=== PATIENT | male | born 1965 | race Caucasian/White ===

== ENCOUNTER 2016-10-04 14:50 | Inpatient (IN) | payer OTHER ==
--- NOTE | ~2016-10-04 | CN ---
Consultation Report [facility] [address] [place]. [address] NAME: KELECHI HARDEN : 63 STATUS : ADM IN PAT#: [id number] AGE: 51 ADM/REG DATE : 10/04/16 MR#: [id number] REPORT SERV DATE: 10/05/16 DICTATED BY: DATE: REPORT STATUS : Draft TRANSCRIBED BY: MODL DATE: 10/05/16 CARDIOLOGY CONSULTATION DATE OF CONSULTATION: 10/05/2016 CHIEF COMPLAINT/REASON FOR CONSULTATION: Volume overload and atrial fibrillation with rapid ventricular response. HISTORY OF PRESENT ILLNESS: Mr. Kelechi Harden is a 51-year-old gentleman, who does not have an established primary care provider and has not seen a physician in quite some time. He states that for the past four to six weeks, he has increasingly been short of breath. Yesterday, he was to see and establish care with a primary care provider, but when it got to the point where he was unable to walk from his porch to the car, he decided to present to the hospital for evaluation. He has not had any chest pain. He notes marked shortness of breath, lower extremity edema and he notes that he has bilateral cellulitis. The patient has a known diagnosis of obstructive sleep apnea, but never sought treatment for it. PAST MEDICAL HISTORY: 1. Morbid obesity, greater than 500 pounds. 2. Untreated obstructive sleep apnea. 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 He does not smoke, drink, or use extracurricular drugs. He is . FAMILY HISTORY: Unknown as the patient was adopted. ALLERGIES: NO KNOWN DRUG ALLERGIES. MEDICATIONS: Current inpatient medications include: 1. Aspirin 81 mg p.o. daily. 2. Cardizem drip per protocol. 3. Eliquis 5 mg p.o. b.i.d. 4. Bumex 1 mg IV q.8 hours. 5. Zosyn. REVIEW OF SYSTEMS: All systems are reviewed and is negative, except for as dictated in the HPI. PHYSICAL EXAMINATION: VITAL SIGNS: Temperature 98.1, pulse is 87 beats per minute, blood pressure is 107/71. Weight is 619 pounds or 247 kg. GENERAL: Mr. Harden appears pale. He is a chronically ill-appearing 51-year-old gentleman, who appears much older than his stated age. NECK: I could not appreciate jugular venous distention due to body habitus. Consultation Report [place] [address] [place]. [address] NAME: KELECHI HARDEN : 63 STATUS : ADM IN PAT#: [id number] AGE: 51 ADM/REG DATE : 10/04/16 MR#: [id number] REPORT SERV DATE: 10/05/16 DICTATED BY: DATE: REPORT STATUS : Draft TRANSCRIBED BY: MODL DATE: 10/05/16 HEART: Irregular, rate controlled. Soft S1 and S2. I could not appreciate murmurs, rubs, or gallops. LUNGS: There are inspiratory and expiratory wheezes in all lung burkett present. ABDOMEN: Obese. The abdominal aorta is nonpalpable. I could not appreciate any renal bruits. EXTREMITIES: There is marked erythema and weeping wounds of the lower extremities bilaterally and marked edema. NEUROLOGIC: I could not appreciate focal neurologic deficits. DATA: A chest x-ray did not demonstrate josh pulmonary edema, but demonstrated cardiomegaly. An EKG documented atrial fibrillation with rapid ventricular response at 103 beats per minute. There are nonspecific ST-T segment changes, it is a very poor quality EKG. Telemetry currently demonstrates rate-controlled atrial fibrillation. Data demonstrate a hemoglobin of 11.6, a hematocrit of 38, a platelet count of 206, a white blood cell count of 4. Sodium 137, potassium 3.5, BUN 12, creatinine 1.02. BNP is 558. Troponins range between 0.24 and 0.31. TSH 0.5. IMPRESSION REPORT AND PLAN: 1. Atrial fibrillation with rapid ventricular response, now rate controlled, likely chronic. 2. Marked volume overload, query right heart failure due to untreated obstructive sleep apnea versus left heart failure versus other. 3. Anemia and leukopenia, unclear etiology. 4. Obstructive sleep apnea, untreated. RECOMMENDATIONS: 1. I agree with echocardiogram as previously ordered. 2. I would continue diuresis. 3. Would make sure that the patient has a bariatric bed that will allow him to be weighed on a daily basis. 4. Strict I's and O's. 5. Fluid restrict to less than 2 L per day. 6. Sodium restrict to less than 2 g p.o. daily. 7. I agree with Eliquis as previously ordered. 8. Would check overnight oximetry to re-evaluate for obstructive sleep apnea. 9. Unfortunately, the patient is not a candidate for any invasive procedures as he exceeds the weight limit on both our nuclear cameras and cardiac catheterization table as well as PET camera. 10.Additional recommendations pending clinical course. KRISTEN/MODL Heidy Shen Consultation Report [address] [address] NAME: KELECHI HARDEN : 63 STATUS : ADM IN PAT#: [id number] AGE: 51 ADM/REG DATE : 10/04/16 MR#: [id number] REPORT SERV DATE: 10/05/16 DICTATED BY: DATE: REPORT STATUS : Draft TRANSCRIBED BY: MODL DATE: 10/05/16 Hanna Mayo / [id number] CC: Oral Flowers M.D.
--- NOTE | ~2016-10-04 | DS ---
Discharge Summary [facility] [address] [place]. [address] NAME: DE HARDEN : 63 STATUS : DIS IN PAT#: [id number] AGE: 51 ADM/REG DATE : 10/04/16 MR#: [id number] REPORT SERV DATE: 10/12/16 DICTATED BY: WALDEMAR MERAZ DATE: 10/11/16 REPORT STATUS : Draft TRANSCRIBED BY: CARLOS DATE: 10/11/16 ADMISSION DATE: 10/04/2016 DISCHARGE DATE: 10/11/2016 PROCEDURES DONE: 1. On 10/04/2016 chest x-ray: Cardiomegaly and pulmonary vascular prominence, accentuated with shallow inspiration and large patient's size. Otherwise, no acute cardiopulmonary abnormality. 2. On 10/04/2016 ultrasound lower extremity: No evidence of DVT. Right Escobedo cyst noted. 3. On 10/05/2016 2D echo: Moderately dilated left ventricle with mild left ventricular systolic dysfunction. More focal inferior wall hypokinesis, EF of 45%. Normal left ventricular systolic dysfunction. Normal right ventricular size and systolic function. Mild left atrial enlargement. Mildly dilated aortic root at 4.2 cm. Calcified and probably bicuspid aortic valve with restricted leaflet mobility. Measured peak velocity of greater than 5 m/sec is consistent with severe aortic stenosis. However, visually there appears to be only mild to moderate aortic stenosis. Consider further evaluation with cardiac cath if clinically indicated. 4. On 10/07/2016 chest x-ray: Stable cardiomegaly. Probable chronic interstitial lung disease pattern. Probable subsegmental atelectasis left lung base. Otherwise, no definite superimposed acute pneumonia. 5. On 10/10/2016 chest x-ray: Mild vascular congestion is improving compared to 10/07/2016. Cardiomegaly is unchanged. CONSULTS: 1. Cardiology. 2. Lara Gill M.D. for Pulmonary. REASON FOR ADMISSION: Shortness of breath with dyspnea with exertion. Please refer to interim discharge summary made by Dr. Flowers on 10/09/2016. HISTORY OF HOSPITAL STAY: A 51-year-old white male with past medical history of congestive heart failure and atrial fibrillation presenting with worsening shortness of breath with dyspnea on exertion. Apparently, the patient is having progressive shortness of breath. Both Pulmonary and Cardiology was also consulted for the patient during his hospital stay. The patient was kept overnight due to a sudden change in mental status, but was subsequently improved when the patient had a change of his medication from aggressive diuresis. Demadex was held and gave one dose of Diamox which improved the patient's mental status. At this time, the patient will be sent to [facility] for rehab. Prior to discharge the patient has been advised regarding his clinical condition. DISPOSITION: The patient is feeling fine, no complaints. ACTIVITY: As tolerated. DIET: Low fat. Discharge Summary [address] [address] NAME: DE HARDEN : 63 STATUS : DIS IN PAT#: [id number] AGE: 51 ADM/REG DATE : 10/04/16 MR#: [id number] REPORT SERV DATE: 10/12/16 DICTATED BY: WALDEMAR MERAZ DATE: 10/11/16 REPORT STATUS : Draft TRANSCRIBED BY: CARLOS DATE: 10/11/16 INSTRUCTIONS UPON DISCHARGE: 1. The patient will be sent to [facility] for rehab. 2. The patient advised to setup for his PCP. 3. The patient recommended once PCP is established follow up for a sleep study. MEDICATIONS UPON DISCHARGE: 1. Apixaban 5 mg p.o. b.i.d. 2. Coreg 6.25 mg daily. 3. Guaifenesin 600 mg p.o. b.i.d. 4. Losartan 25 mg p.o. q.h.s. 5. Aldactone 25 mg p.o. daily. 6. Atrovent nebulizers four times a day. DIAGNOSES UPON DISCHARGE: 1. Dyspnea on exertion secondary to acute on chronic hypercapnic respiratory failure, obstructive hypoventilated syndrome versus obstructive sleep apnea. 2. Acute on chronic hypercapnic respiratory failure. 3. Obstructive sleep apnea/obstructive hypoventilation syndrome secondary to noncompliance of continuous positive airway pressure. 4. Atrial fibrillation status post rapid ventricular response. 5. Chronic venous stasis. 6. Morbid obesity, BMI 74.1. MALA/CARLOS Waldemar Meraz MD / [id number] CC: Waldemar Meraz MD
--- NOTE | ~2016-10-04 | IDS ---
Interim Discharge Summary [facility] [address] [place]. [address] NAME: DE HARDEN : 63 STATUS : ADM IN [facility]#: [id number] AGE: 51 ADM/REG DATE : 10/04/16 MR#: [id number] REPORT SERV DATE: 10/09/16 DICTATED BY: STEVEN FLOWERS DATE: 10/09/16 REPORT STATUS : Draft TRANSCRIBED BY: MODL DATE: 10/09/16 ADMISSION DATE: 10/04/2016 DISCHARGE DATE: CONSULTANTS: Heidy Mayo M.D. and Eloy White M.D., Cardiology. PROBLEM LIST: 1. Acute hypoxic respiratory failure. 2. Severe obstructive sleep apnea, not treated. 3. Paroxysmal atrial fibrillation with rapid ventricular response. 4. Morbid obesity with body mass index of 74.1. 5. Chronic stasis dermatitis, right worse than the left calf. 6. Aortic stenosis with possible bicuspid valve. 7. Iron-deficiency anemia. 8. Anasarca. HISTORY: This gentleman has severe obesity, it is actually morbid, his BMI is 74.1. He has known obstructive sleep apnea. He states that "they never sent me my machine," this was actually years ago and he never followed up. He has no PCP. He presented to our emergency room at [facility] with complaints of shortness of breath, especially dyspnea on exertion, but even dyspnea at rest. It got to the point where he had difficulty walking across the room. Chest x-ray in the emergency room revealed cardiomegaly with pulmonary vascular congestion. Venous Doppler of his legs revealed no DVT, but a right- sided Escobedo's cyst was noted. B-natriuretic was elevated at 1205.8. Cardiac troponins were minimally elevated between 0.16 and 0.31. Cardiology felt it was probably a demand myocardial injury, but because his weight was greater than 550 pounds, he was not a candidate for any kind of cardiac imaging modality beyond chest x-ray and echocardiography at this time. Echocardiogram done on 10/05/2016 reveals left atrial enlargement of 4.7 cm. Moderately dilated left ventricle with mild left ventricular systolic dysfunction, ejection fraction of 45%. Mildly dilated aortic root of 4.2 cm. The aortic valve appeared calcified and probably bicuspid with reads restricted leaflet mobility suggesting mild to moderate aortic stenosis. To further define this, he would need a catheterization which he is not able to get because of his weight at this time. He is aware of it. Cardiology recommends continued use of oxygen and future sleep study as well as at this time diuresis to mobilize volume overload along with Coreg and Cozaar. Because of his atrial fibrillation with rapid ventricular response, he has been on the beta dany, Coreg, which has controlled his ventricular response rate. The patient is on Eliquis for stroke prophylaxis therapy He has stasis dermatitis wounds. Does not appear to have active cellulitis. His white count has been normal through his time here. The culture of the legs revealed diphtheroid organisms and some sparse gram-negative bacilli to be identified. Blood cultures no growth. Sputum culture with normal rozina. Interim Discharge Summary [address] [address] NAME: DE HARDEN : 63 STATUS : ADM IN [facility]#: [id number] AGE: 51 ADM/REG DATE : 10/04/16 MR#: [id number] REPORT SERV DATE: 10/09/16 DICTATED BY: STEVEN FLOWERS DATE: 10/09/16 REPORT STATUS : Draft TRANSCRIBED BY: MODL DATE: 10/09/16 The patient is felt to need inpatient rehab for physical therapy and wound care. When he is healthy enough he needs outpatient sleep study to define his sleep apnea and get him onto CPAP or BiPAP and to follow up longitudinally with Cardiology, so that when his weight will allow, he could have further evaluation of his aortic valve. The patient has been noted to have a mild anemia. He does appear to be iron deficient with a low percent iron sat of 7 and a low serum iron of 22. Stool for guaiac has not been obtained yet. RSG/KEILYL Steven Flowers M.D. / [id number] CC: Steven Flowers M.D.
--- NOTE | ~2016-10-04 | HP ---
History And Physical [facility] [address] [place]. [address] NAME: DE HARDEN : 63 STATUS : ADM IN [facility]#: [id number] AGE: 51 ADM/REG DATE : 10/04/16 MR#: [id number] REPORT SERV DATE: 10/05/16 DICTATED BY: MOISES OSEI DATE: 10/05/16 REPORT STATUS : Draft TRANSCRIBED BY: MODL DATE: 10/05/16 DATE OF ADMISSION: 10/04/2016 CHIEF COMPLAINT: Shortness of breath with dyspnea with exertion. HISTORY OF PRESENT ILLNESS: This is a 51-year-old male, who is morbidly obese, who has been feeling poorly for about three weeks now according to him. He states he has been having progressively worsening dyspnea with exertion, which finally culminated in shortness of breath even at rest. He does not have any established primary care physician, nor has he seen any other specialists. Today, he was unable to even get up for across the room and finally decided to call EMS to bring him to the hospital here. In the emergency room, he had an initial workup that revealed he had an atrial fibrillation with rapid ventricular response, volume overload, and elevated troponin and possibly cellulitis of his lower extremity. Hospitalist Service is asked to admit him for further evaluation and treatment. At the time of my evaluation, he denied any chest pain or palpitations. He had no orthopnea. He had no cough, hemoptysis, night sweats, or weight loss. He denied any recent falls or loss of consciousness. No history of fevers and chills. He denied any nausea, vomiting, diarrhea. No other history of recent travel or exposures. PAST MEDICAL HISTORY: His past medical history is significant for: 1. History of congestive heart failure. 2. History of atrial fibrillation. SOCIAL HISTORY: He does not smoke, drink, or use recreational drugs. 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 FAMILY HISTORY: Noncontributory. MEDICATIONS: His medications at home were reviewed by me in the chart today and reordered by me. REVIEW OF SYSTEMS: As in history of present illness. All other systems were reviewed in detail and quite unremarkable. PHYSICAL EXAMINATION: GENERAL: This is a pleasant 51-year-old, not in any acute distress. HEENT: His head is atraumatic and normocephalic. He is alert, awake, oriented to time, place, and person. He is morbidly obese. NECK: Supple with no jugular venous distention, lymphadenopathy, or thyromegaly. LUNGS: Clear to auscultation, although there was decreased air entry bilaterally. There were no expiratory wheezes. HEART: Auscultation of his heart revealed irregular rate and rhythm. History And Physical [address] [address] NAME: DE HARDEN : 63 STATUS : ADM IN [facility]#: [id number] AGE: 51 ADM/REG DATE : 10/04/16 MR#: [id number] REPORT SERV DATE: 10/05/16 DICTATED BY: MOISES OSEI DATE: 10/05/16 REPORT STATUS : Draft TRANSCRIBED BY: CARLOS DATE: 10/05/16 ABDOMEN: Soft and nontender. Bowel sounds are present. EXTREMITIES: Bilateral pitting lower extremity edema with bilateral increased redness and warmth. NEURO: Grossly intact. No focal sensory or motor deficits. Higher functions appeared intact. VITAL SIGNS: Today showed a temperature of 98.7, pulse 103, respirations 26 a minute, and blood pressure was 162/104 upon arrival. Oxygen saturations were 93% breathing 4 L via nasal cannula. LABORATORY DATA: Reviewed on the [employer] system showed an arterial blood gas with a pH of 7.38, pCO2 was 38, PaO2 was 78, and bicarb was 21.8. This was on 3 L via nasal cannula. CMP showed normal values with a glucose of 94. Troponin today was 0.24. His BNP was elevated at 1205.8 and his lactate was 1.4. CBC showed a white blood cell count of 6400, hemoglobin was 12.3, hematocrit 38.8, and platelet count was 235,000. Urinalysis was grossly unremarkable. Films of the chest x-ray were reviewed by me on the PACS today, and per my interpretation there is increased vascular prominence and cardiomegaly. There are small bilateral pleural effusions seen as well. Venous Doppler of his lower extremities were performed in the emergency room, which showed no active DVTs, but there was a right Escobedo's cyst. A 12-lead EKG done in emergency room was reviewed and interpreted by me. There is atrial fibrillation with rapid ventricular response of 103. IMPRESSION: 1. Atrial fibrillation with rapid ventricular response. 2. Volume overload. 3. Congestive heart failure with exacerbation. 4. Elevated troponin. 5. Bilateral lower extremity cellulitis. 6. Right Escobedo's cyst seen on ultrasound today. PLAN: We will admit Mr. Harden to the Hospitalist Service with telemetry for a 24-hour observation period. He will be started on Cardizem infusion for this rapid ventricular rate. We will also use beta-blockers if necessary for rate control. We will go ahead and consult [facility] in the morning to evaluate him. He was started on Eliquis which we will continue. We will also start him on intravenous diuretics for 24 hours, follow outputs rate, and check his TSH as well. We will also get an echocardiogram in the morning. Meanwhile, we will place him on bronchodilator treatments, continue supplemental oxygen therapy, and also follow troponin levels. Meanwhile, we will get cultures and start him on History And Physical [address] [address] NAME: DE HARDEN : 63 STATUS : ADM IN [facility]#: [id number] AGE: 51 ADM/REG DATE : 10/04/16 MR#: [id number] REPORT SERV DATE: 10/05/16 DICTATED BY: MOISES OSEI DATE: 10/05/16 REPORT STATUS : Draft TRANSCRIBED BY: CARLOS DATE: 10/05/16 empiric IV antibiotics at this time and it is noted that his lower extremities were negative for deep venous thrombosis. I have discussed the above plans with the patient. His questions were answered and he is agreeable to the above recommendations. Hospitalist Service will be following him during his stay here. /CARLOS Moises Osei M.D. / [id number] CC: Jose Luis Kasper M.D.
--- NOTE | ~2016-10-04 | PUL ---
[facility] [place] [address] [place]. [address] NAME: DE HARDEN : 63 STATUS : ADM IN [facility]#: [id number] AGE: 51 ADM/REG DATE : 10/04/16 MR#: [id number] REPORT SERV DATE: 10/08/16 DICTATED BY: LARA RAMOS DATE: 10/07/16 REPORT STATUS : Draft TRANSCRIBED BY: MODL DATE: 10/07/16 PULMONARY FUNCTION TEST OVERNIGHT OXIMETRY Start date of testin10/05/2016. Ended date of testin10/06/2016. COMMENTS: Testing was conducted while the patient was breathing room air. RESULTS: Total valid sampling time 6 hours 24 minutes and 34 seconds. Total time with an oxygen saturation less than 88%, 53 minutes and 42 seconds. Oxygen desaturation index 33.1. IMPRESSION: There was significant desaturation during this study conducted while the patient was breathing room air. Additionally, the oxygen desaturation index was elevated suggestive of possible obstructive sleep apnea. Recommend supplemental oxygen at a flow rate of 2 L per minute while sleeping. Recommend formal sleep study if clinically indicated. PS/CARLOS Lara Ramos M.D. / [id number] CC: Oral Flowers M.D.
[2016-10-04 14:32] LABS: ALLENS TEST Pos; BE (BASE EXCESS) -2.8 MEQ/L (0 +/- 2.5); CARBOXYHEMOGLOBIN 1.9 % (0-3); DEVICE NC; HCO3 (ACTUAL BICARBONATE) 21.8 MEQ/L (23-27); HEMOBLOGIN CONTENT 13.3 G/DL (14-18); INSTRUMENT SERIAL # 8087; METHEMOGLOBIN 0.1 % (0-3); O2 CONTENT 17.6 VOL% (18-24); PCO2 (CO2 TENSION) 38 MMHG (35-45); PO2 (O2 TENSION) 78 MMHG (79-93); SAMPLE Arterial; pH 7.38 (7.37-7.43)
[2016-10-04 16:30] LABS: BASOPHILS 0.2 %; BASOPHILS ABSOLUTE 0.01 10/3/uL (0.0-0.16); EOSINOPHILS 0 %; ER CBC TAT 0 Hrs 10 Mins; HEMATOCRIT 38.8 % (40.0-51.0); HEMOGLOBIN 12.3 g/dL (13.6-17.8); IMMATURE GRANULOCYTES 0.2 %; IMMATURE GRANULOCYTES ABSOLUTE 0.01 10/3/uL (0.0-0.11); MANUAL DIFF NO %; MEAN CORPUS HGB CONC 31.7 g/dL (32.0-36.0); MEAN CORPUSCULAR HEMOGLOB 25.7 pg (26.0-34.0); MEAN CORPUSCULAR VOLUME 81.2 fL (80-100); MEAN PLATELET VOLUME 10.5 fL (9.2-13.0); MONOCYTES 8.2 %; MONOCYTES ABSOLUTE 0.52 10/3/uL (0.21-1.20); NEUTROPHILS 80.4 %; NEUTROPHILS ABSOLUTE 5.14 10/3/uL (2.02-8.40); PLATELET COUNT 235 10/3/uL (150-400); RBC DISTRIBUTION WIDTH 15.9 % (12.0-16.0); RED CELL COUNT 4.78 10/6/uL (4.7-6.1); WHITE BLOOD CELLS 6.4 10/3/uL (4.5-10.5)
[2016-10-04 16:42] LABS: A/G RATIO 0.7 (0.7-1.9); ALBUMIN 3.1 G/DL (3.5-5.0); ALKALINE PHOSPHATASE 76 U/L (45-117); BUN (BLOOD UREA NITROGEN) 11 MG/DL (6-23); CALCIUM, SERUM 8.4 MG/DL (8.5-10.4); CHLORIDE, SERUM 100 MMOL/L (96-112); CO2 (CARBON DIOXIDE) 29 MMOL/L (24-34); CREATININE 1.23 MG/DL (0.70-1.30); GFR AFRICAN AMERICAN 78 ML/MIN (>=60); GFR NON AFRICAN AMERICAN 67 ML/MIN (>=60); GLOBULIN 4.7 G/DL (2.5-4.1); GLUCOSE, SERUM 94 MG/DL (60-99); SGOT(AST) 44 U/L (5-40); SGPT(ALT) 24 U/L (5-65); SODIUM, SERUM 137 MMOL/L (135-148); TOTAL PROTEIN 7.8 G/DL (6.0-8.5)
[2016-10-04 17:23] LABS: TROPONIN I 0.24 NG/ML (<0.05)
[2016-10-05 09:38] LABS: BASOPHILS 0.3 %; BASOPHILS ABSOLUTE 0.01 10/3/uL (0.0-0.16); EOSINOPHILS 0 %; HEMOGLOBIN 11.6 g/dL (13.6-17.8); IMMATURE GRANULOCYTES 0.3 %; IMMATURE GRANULOCYTES ABSOLUTE 0.01 10/3/uL (0.0-0.11); LYMPHOCYTES 8.8 %; LYMPHOCYTES ABSOLUTE 0.35 10/3/uL (0.67-4.30); MEAN CORPUS HGB CONC 30.5 g/dL (32.0-36.0); MEAN CORPUSCULAR HEMOGLOB 25.1 pg (26.0-34.0); MEAN CORPUSCULAR VOLUME 82.1 fL (80-100); MEAN PLATELET VOLUME 10.3 fL (9.2-13.0); MONOCYTES 13.5 %; MONOCYTES ABSOLUTE 0.54 10/3/uL (0.21-1.20); NEUTROPHILS 77.1 %; NEUTROPHILS ABSOLUTE 3.09 10/3/uL (2.02-8.40); PLATELET COUNT 206 10/3/uL (150-400); RBC DISTRIBUTION WIDTH 16.2 % (12.0-16.0); RED CELL COUNT 4.63 10/6/uL (4.7-6.1)
[2016-10-05 09:40] LABS: MANUAL DIFF NO %
[2016-10-05 10:02] LABS: BUN (BLOOD UREA NITROGEN) 12 MG/DL (6-23); CALCIUM, SERUM 7.9 MG/DL (8.5-10.4); CHLORIDE, SERUM 99 MMOL/L (96-112); CO2 (CARBON DIOXIDE) 31 MMOL/L (24-34); CREATININE 1.02 MG/DL (0.70-1.30); GFR AFRICAN AMERICAN 97 ML/MIN (>=60); GFR NON AFRICAN AMERICAN 84 ML/MIN (>=60); GLUCOSE, SERUM 98 MG/DL (60-99); PHOSPHORUS, SERUM 2.6 MG/DL (2.5-4.5); POTASSIUM, SERUM 3.5 MMOL/L (3.5-5.3); SODIUM, SERUM 137 MMOL/L (135-148); TROPONIN I 0.24 NG/ML (<0.05); ULTRASENSITIVE TSH 0.516 MCIU/ML (0.358-3.740)
[2016-10-05 16:54] LABS: IRON BINDING CAPACITY 352 MCG/DL (250-450)
[2016-10-06 06:48] LABS: CALCIUM, SERUM 7.8 MG/DL (8.5-10.4); CHLORIDE, SERUM 99 MMOL/L (96-112); CO2 (CARBON DIOXIDE) 30 MMOL/L (24-34); CREATININE 1.06 MG/DL (0.70-1.30); GFR AFRICAN AMERICAN 93 ML/MIN (>=60); GFR NON AFRICAN AMERICAN 80 ML/MIN (>=60); GLUCOSE, SERUM 89 MG/DL (60-99); POTASSIUM, SERUM 3.8 MMOL/L (3.5-5.3); SODIUM, SERUM 137 MMOL/L (135-148)
[2016-10-06 06:49] LABS: BUN (BLOOD UREA NITROGEN) 16 MG/DL (6-23)
[2016-10-06 16:07] LABS: % IRON SAT 7 % (20-50); FERRITIN 138 NG/ML (26-388); IRON BINDING CAPACITY 298 MCG/DL (250-450); IRON, SERUM 22 MCG/DL (35-150)
[2016-10-06 16:43] LABS: PROCALCITONIN 0.17 ng/mL (<0.5)
[2016-10-07 07:42] LABS: BASOPHILS 0.4 %; BASOPHILS ABSOLUTE 0.02 10/3/uL (0.0-0.16); EOSINOPHILS 0.2 %; EOSINOPHILS ABSOLUTE 0.01 10/3/uL (0.0-0.53); HEMATOCRIT 40.8 % (40.0-51.0); HEMOGLOBIN 12.4 g/dL (13.6-17.8); LYMPHOCYTES 20.4 %; LYMPHOCYTES ABSOLUTE 0.92 10/3/uL (0.67-4.30); MEAN CORPUS HGB CONC 30.4 g/dL (32.0-36.0); MEAN CORPUSCULAR HEMOGLOB 25.1 pg (26.0-34.0); MEAN CORPUSCULAR VOLUME 82.6 fL (80-100); MEAN PLATELET VOLUME 10.2 fL (9.2-13.0); MONOCYTES 12.4 %; MONOCYTES ABSOLUTE 0.56 10/3/uL (0.21-1.20); NEUTROPHILS 66.6 %; NEUTROPHILS ABSOLUTE 2.99 10/3/uL (2.02-8.40); PLATELET COUNT 208 10/3/uL (150-400); RBC DISTRIBUTION WIDTH 16.2 % (12.0-16.0); RED CELL COUNT 4.94 10/6/uL (4.7-6.1); WHITE BLOOD CELLS 4.5 10/3/uL (4.5-10.5)
[2016-10-07 07:45] LABS: MANUAL DIFF NO %
[2016-10-07 07:57] LABS: BUN (BLOOD UREA NITROGEN) 15 MG/DL (6-23); CALCIUM, SERUM 7.9 MG/DL (8.5-10.4); CHLORIDE, SERUM 100 MMOL/L (96-112); CO2 (CARBON DIOXIDE) 30 MMOL/L (24-34); CREATININE 0.93 MG/DL (0.70-1.30); GFR AFRICAN AMERICAN 109 ML/MIN (>=60); GFR NON AFRICAN AMERICAN 94 ML/MIN (>=60); GLUCOSE, SERUM 87 MG/DL (60-99); POTASSIUM, SERUM 3.7 MMOL/L (3.5-5.3); SODIUM, SERUM 137 MMOL/L (135-148)
[2016-10-08 07:07] LABS: BUN (BLOOD UREA NITROGEN) 16 MG/DL (6-23); CALCIUM, SERUM 7.8 MG/DL (8.5-10.4); CHLORIDE, SERUM 100 MMOL/L (96-112); CO2 (CARBON DIOXIDE) 29 MMOL/L (24-34); CREATININE 0.89 MG/DL (0.70-1.30); GFR AFRICAN AMERICAN 114 ML/MIN (>=60); GFR NON AFRICAN AMERICAN 98 ML/MIN (>=60); GLUCOSE, SERUM 86 MG/DL (60-99); POTASSIUM, SERUM 3.8 MMOL/L (3.5-5.3); SODIUM, SERUM 139 MMOL/L (135-148)
[2016-10-09 05:57] LABS: BUN (BLOOD UREA NITROGEN) 13 MG/DL (6-23); CALCIUM, SERUM 7.9 MG/DL (8.5-10.4); CHLORIDE, SERUM 100 MMOL/L (96-112); CO2 (CARBON DIOXIDE) 30 MMOL/L (24-34); CREATININE 0.79 MG/DL (0.70-1.30); GFR AFRICAN AMERICAN 120 ML/MIN (>=60); GFR NON AFRICAN AMERICAN 103 ML/MIN (>=60); SODIUM, SERUM 138 MMOL/L (135-148)
[2016-10-09 06:09] LABS: GLUCOSE, SERUM 115 MG/DL (60-99); POTASSIUM, SERUM 4.1 MMOL/L (3.5-5.3)
[2016-10-10 06:41] LABS: BASOPHILS 0.2 %; BASOPHILS ABSOLUTE 0.01 10/3/uL (0.0-0.16); EOSINOPHILS 1.8 %; EOSINOPHILS ABSOLUTE 0.08 10/3/uL (0.0-0.53); HEMATOCRIT 42.1 % (40.0-51.0); HEMOGLOBIN 12.9 g/dL (13.6-17.8); IMMATURE GRANULOCYTES 0.2 %; IMMATURE GRANULOCYTES ABSOLUTE 0.01 10/3/uL (0.0-0.11); LYMPHOCYTES 24.9 %; LYMPHOCYTES ABSOLUTE 1.12 10/3/uL (0.67-4.30); MANUAL DIFF NO %; MEAN CORPUS HGB CONC 30.6 g/dL (32.0-36.0); MEAN CORPUSCULAR HEMOGLOB 25.7 pg (26.0-34.0); MEAN CORPUSCULAR VOLUME 83.9 fL (80-100); MEAN PLATELET VOLUME 11.2 fL (9.2-13.0); MONOCYTES 12.7 %; MONOCYTES ABSOLUTE 0.57 10/3/uL (0.21-1.20); NEUTROPHILS 60.2 %; PLATELET COUNT 223 10/3/uL (150-400); RED CELL COUNT 5.02 10/6/uL (4.7-6.1); WHITE BLOOD CELLS 4.5 10/3/uL (4.5-10.5)
[2016-10-10 07:00] LABS: BUN (BLOOD UREA NITROGEN) 12 MG/DL (6-23); CALCIUM, SERUM 8.6 MG/DL (8.5-10.4); CHLORIDE, SERUM 98 MMOL/L (96-112); CO2 (CARBON DIOXIDE) 33 MMOL/L (24-34); CREATININE 0.79 MG/DL (0.70-1.30); GFR AFRICAN AMERICAN 120 ML/MIN (>=60); GFR NON AFRICAN AMERICAN 103 ML/MIN (>=60); SODIUM, SERUM 139 MMOL/L (135-148)
[2016-10-10 07:06] LABS: GLUCOSE, SERUM 90 MG/DL (60-99)
[2016-10-10 15:13] LABS: ALLENS TEST Pos; BE (BASE EXCESS) 9.4 MEQ/L (0 +/- 2.5); CARBOXYHEMOGLOBIN 1.7 % (0-3); DEVICE NC; HCO3 (ACTUAL BICARBONATE) 36.8 MEQ/L (23-27); HEMOBLOGIN CONTENT 14.1 G/DL (14-18); INSTRUMENT SERIAL # 8083; METHEMOGLOBIN 0.2 % (0-3); O2 CONTENT 18.6 VOL% (18-24); PCO2 (CO2 TENSION) 62 MMHG (35-45); PO2 (O2 TENSION) 80 MMHG (79-93); SAMPLE Arterial; pH 7.39 (7.37-7.43)
[2016-10-10 16:01] LABS: PROCALCITONIN <0.05 ng/mL (<0.5)
[2016-10-11 06:24] LABS: BASOPHILS 0.2 %; BASOPHILS ABSOLUTE 0.01 10/3/uL (0.0-0.16); EOSINOPHILS 1.7 %; EOSINOPHILS ABSOLUTE 0.09 10/3/uL (0.0-0.53); HEMATOCRIT 43.3 % (40.0-51.0); HEMOGLOBIN 13.3 g/dL (13.6-17.8); IMMATURE GRANULOCYTES 0.4 %; IMMATURE GRANULOCYTES ABSOLUTE 0.02 10/3/uL (0.0-0.11); LYMPHOCYTES 25.2 %; LYMPHOCYTES ABSOLUTE 1.33 10/3/uL (0.67-4.30); MANUAL DIFF NO %; MEAN CORPUS HGB CONC 30.7 g/dL (32.0-36.0); MEAN CORPUSCULAR HEMOGLOB 25.8 pg (26.0-34.0); MEAN CORPUSCULAR VOLUME 83.9 fL (80-100); MEAN PLATELET VOLUME 11.7 fL (9.2-13.0); MONOCYTES 8.9 %; MONOCYTES ABSOLUTE 0.47 10/3/uL (0.21-1.20); NEUTROPHILS 63.6 %; NEUTROPHILS ABSOLUTE 3.36 10/3/uL (2.02-8.40); PLATELET COUNT 294 10/3/uL (150-400); RBC DISTRIBUTION WIDTH 15.9 % (12.0-16.0); RED CELL COUNT 5.16 10/6/uL (4.7-6.1); WHITE BLOOD CELLS 5.3 10/3/uL (4.5-10.5)
[2016-10-11 10:17] LABS: BUN (BLOOD UREA NITROGEN) 12 MG/DL (6-23); CALCIUM, SERUM 8.6 MG/DL (8.5-10.4); CHLORIDE, SERUM 101 MMOL/L (96-112); CO2 (CARBON DIOXIDE) 30 MMOL/L (24-34); CREATININE 0.96 MG/DL (0.70-1.30); GFR AFRICAN AMERICAN 105 ML/MIN (>=60); GFR NON AFRICAN AMERICAN 91 ML/MIN (>=60); GLUCOSE, SERUM 106 MG/DL (60-99); SODIUM, SERUM 137 MMOL/L (135-148)
[2016-10-11 10:28] LABS: POTASSIUM, SERUM 4.6 MMOL/L (3.5-5.3)
== END 2016-10-11 19:56 | DRG 291 ==
LOC: ER 14:50 → 7NO 19:12
PROVIDERS: Emergency Medicine; Hospitalist; Internal Medicine; Internal Medicine Pulmonary Disease
DX: I50.23 Acute on chronic systolic (congestive) heart failure (principal); J96.01 Acute respiratory failure with hypoxia; L03.115 Cellulitis of right lower limb; Z68.45 Body mass index [BMI] 70 or greater, adult; L03.116 Cellulitis of left lower limb; E66.2 Morbid (severe) obesity with alveolar hypoventilation; M71.21 Synovial cyst of popliteal space [Baker], right knee; I35.0 Nonrheumatic aortic (valve) stenosis; I87.2 Venous insufficiency (chronic) (peripheral); D50.9 Iron deficiency anemia, unspecified
CPT/HCPCS: 36600; 71010; 80048; 80053; 82607; 82728; 82805; 83540; 83550; 83605; 83735; 83880; 84100; 84145; 84443; 84484; 85025; 87040; 87070; 87077; 87186; 87205; 87449; 93005; 93970; 94640; 94762; 96374; 97161-GP; 97530-GP; 99285; A9270-GY; C8929; J1120; J1940; J1956; J2543; J2916; Q9957

== ENCOUNTER 2017-04-18 12:29 | Inpatient (IN) | payer OTHER ==
[~2017-04-18] VITALS: Ht 182.9 cm; Wt 201.2 kg
--- NOTE | ~2017-04-18 | IDS ---
Interim Discharge Summary [facility] [address] [place]. [address] NAME: DE HARDEN : 63 STATUS : ADM IN [facility]#: [id number] AGE: 52 ADM/REG DATE : 04/18/17 MR#: [id number] REPORT SERV DATE: 04/23/17 DICTATED BY: STEVEN FLOWERS DATE: 04/23/17 REPORT STATUS : Draft TRANSCRIBED BY: MODL DATE: 04/23/17 ADMISSION DATE: 04/18/2017 DISCHARGE DATE: CONSULTANTS: Erick Hodges IV, MD, Cardiology. PROBLEM LIST: 1. Acute on chronic diastolic and systolic congestive heart failure with left ventricular ejection fraction of 45%. 2. Severe aortic stenosis with aortic valve area of 0.6 cm2 on transthoracic echo. 3. Paroxysmal atrial fibrillation. 4. Right bundle branch block pattern. 5. Morbid obesity with BMI of 73.8. 6. Chronic leg venous stasis dermatitis. 7. Right knee Escobedo's cyst. 8. Mild metabolic alkalosis. 9. Suspected severe obstructive sleep apnea. HISTORY: This patient was here in September of 2016 and found to have hypoxic respiratory failure, felt to have severe obstructive sleep apnea, it was not treated. He also had atrial fibrillation at that time with rapid ventricular response and aortic stenosis with suspected bicuspid aortic valve. The patient was seen by Pulmonary and by Cardiology during that hospitalization, had successful diuresis, and was set up to be on followup with his PCP for a sleep study. Unfortunately, the patient did not follow up with his PCP, did not get a sleep study, and did not take any of his medications. He presents back now with progressive leg swelling, and shortness of breath, and was referred to our team for inpatient care. His chest x-ray on presentation shows mild pulmonary vascular congestion. Venous Doppler of the legs reveals no evidence of deep vein thrombosis on either leg, but a Escobedo's cyst, right popliteal fossa. Echocardiogram transthoracic on 04/19/2017, reveals left atrial enlargement 4.5 cm, mildly dilated left ventricle with left ventricular ejection fraction of 45%, and more focal inferior wall hypokinesis. Normal right ventricular size and function. Severe aortic stenosis with peak velocity 4.2 m/sec. Aortic valve area 0.6 cm2. The patient is currently in atrial fibrillation. He is got his rate controlled. He is on a heparin drip. We will discuss long-term anticoagulation with warfarin. With his BMI greater than 70, I would not be comfortable using a novel oral anticoagulant given the limited clinical data available and the recommendations of the International Society Of Thrombosis And Hemostasis to avoid NOAC's in patients with a BMI greater than 40 kilos. Currently, we are not putting him on the warfarin because we are waiting for cardiology decide on doing a heart catheterization to examine the size of the valve, and to check his right heart pressure, as well as his coronary arteries. He is currently receiving intravenous Lasix and trying to get a steady diuresis of 2.5 to 3 Interim Discharge Summary [place] [id number] [facility] [place]. [address] NAME: DE HARDEN : 63 STATUS : ADM IN [facility]#: [id number] AGE: 52 ADM/REG DATE : 04/18/17 MR#: [id number] REPORT SERV DATE: 04/23/17 DICTATED BY: STEVEN FLOWERS DATE: 04/23/17 REPORT STATUS : Draft TRANSCRIBED BY: CARLOS DATE: 04/23/17 L a day without causing contraction alkalosis which could lead to respiratory depression and confusion The patient is cooperative. He is still ambulatory. We need to continue to get him up on a daily basis. His blood pressure is controlled, his breathing is doing well. He is on beta dany and losartan. He is not on aspirin right now, but he is on heparin. EDA/CARLOS Steven Flowers M.D. / [id number] CC: Steven Flowers M.D.
--- NOTE | ~2017-04-18 | CN ---
Consultation Report [facility] [address] [place]. [address] NAME: DE HARDEN : 63 STATUS : ADM IN PAT#: [id number] AGE: 52 ADM/REG DATE : 04/18/17 MR#: [id number] REPORT SERV DATE: 04/26/17 DICTATED BY: MIO HOUSE DATE: 04/26/17 REPORT STATUS : Draft TRANSCRIBED BY: MODL DATE: 04/26/17 CONSULTATION NOTE DATE OF CONSULTATION: REASON FOR CONSULTATION: Severe aortic valve stenosis, consideration for surgical aortic valve replacement versus transcatheter aortic valve insertion. CHIEF COMPLAINT: "I got very short of breath." HISTORY OF PRESENT ILLNESS: This is a pleasant 52-year-old obese gentleman, who recently presented to the emergency department with complaints of severe shortness of breath, swelling, and exercise intolerance. He was hospitalized for further evaluation and treatment of his acute heart failure. His prior history is significant for morbid obesity, probable obstructive sleep apnea, and admission here in September and October of this year for heart failure. At that time, he underwent an echocardiogram which showed mildly diminished left ventricular function with ejection fraction of 45% and inferior hypokinesis, mildly dilated aortic root of 4.2 cm, calcified probable bicuspid aortic valve with restricted leaflet mobility, and mild to moderate aortic stenosis. At that time, he was found to be in atrial fibrillation. He denies having had any prior history before that of atrial fibrillation or heart problems. He does admit that he has about an 18-month history of exercise intolerance, dyspnea on exertion. At his prior admission, he was discharged to rehabilitative care and was treated for a lower extremity venous stasis/cellulitis as well as his heart failure and obesity. He was placed on medications and told me he was doing very well at losing weight and was feeling much better. He reports that he became noncompliant with his diet, started eating pretty much what he wanted and also neglected to take his medications. He then again became very short of breath, with lower extremity edema, and re-presented to the emergency department here on the 04/18/2017, at which time, he was hospitalized with heart failure, atrial fibrillation, and aortic stenosis. He had a repeat echocardiogram which demonstrated severe aortic stenosis with aortic valve area of 0.6 cm2 and coronary arteriogram today did not show any significant flow-limiting coronary artery disease, did show severe aortic stenosis with mean gradient of 70 mmHg and aortic valve area calculated at 0.7 mmHg. He also had pulmonary hypertension of 55 mmHg. He had elevated right atrial pressure. We were asked to see for possible surgical aortic valve replacement versus transcatheter aortic valve insertion and this was discussed with the patient at length today. PRIOR MEDICAL HISTORY: 1. Systolic/diastolic heart failure. 2. Aortic stenosis. 3. Atrial fibrillation. 4. Chronic lower extremity stasis dermatitis. Consultation Report [address] [place]. [address] NAME: DE HARDEN : 63 STATUS : ADM IN [facility]#: [id number] AGE: 52 ADM/REG DATE : 04/18/17 MR#: [id number] REPORT SERV DATE: 04/26/17 DICTATED BY: MIO HOUSE DATE: 04/26/17 REPORT STATUS : Draft TRANSCRIBED BY: CARLOS DATE: 04/26/17 5. Right bundle branch block. 6. Morbid obesity. 7. Medical noncompliance. PRIOR SURGICAL HISTORY: Umbilical hernia. ALLERGIES: NONE KNOWN. MEDICATIONS AT HOME: None. SOCIAL HISTORY: He uses smokeless tobacco, does not smoke. Denies use of alcohol or illicit drugs. He lives alone. 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 FAMILY HISTORY: Not known as he is adopted and does not have any known siblings. REVIEW OF SYSTEMS: Notable only for wearing glasses, umbilical hernia, and as above. He denies any history of stroke or TIA symptoms. He denies any history of abnormal or easy bleeding or bruising. He denies any bone or joint problems. Denies any kidney or liver problems. PHYSICAL EXAMINATION: GENERAL: This is a pleasant obese balding white male, lying in bed, in no acute distress. VITAL SIGNS: His height is 182.88 cm. Weight is 220.58 kg giving him BMI of 73.92. HEENT: Normocephalic, atraumatic. Pupils are equal, round, and reactive to light and accommodation. Sclerae are clear, conjunctivae pink. Oral and buccal mucosa are pink and moist. He is missing several teeth, has some fillings, but I do not see any abscesses or broken teeth. NECK: Supple. No restricted range of motion. No carotid bruits. No jugular venous distention. CHEST: Clear to auscultation anteriorly. No use of accessory muscles. No chest wall tenderness. No obvious deformity. CV: Irregular rhythm, with palpable and symmetric central and peripheral pulses, with lower extremity woody edema, discoloration, and palpable central and peripheral pulses. HEART: Has an irregular rhythm with a harsh aortic systolic murmur heard across the precordium. ABDOMEN: Soft, morbidly obese, nontender with abdominal striae. /RECTAL: Declined. MUSCULOSKELETAL: No obvious kyphoscoliosis or asymmetry. NEUROLOGIC: He is pleasant and affable, alert, oriented, with normal speech flow and affect. No focal neurologic deficits. No tremors. SKIN, HAIR, AND NAILS: Discoloration and coarsening of the skin over the lower extremities with a peeled orange appearance. DATA: He has coronary arteriogram today which I reviewed showing no significant flow- limiting coronary artery disease and findings as above. Ejection fraction by echo was 45%. Consultation Report [address] [address] NAME: DE HARDEN : 63 STATUS : ADM IN [facility]#: [id number] AGE: 52 ADM/REG DATE : 04/18/17 MR#: [id number] REPORT SERV DATE: 04/26/17 DICTATED BY: MIO HOUSE DATE: 04/26/17 REPORT STATUS : Draft TRANSCRIBED BY: CARLOS DATE: 04/26/17 Echo currently shows findings as mentioned above. EKG shows atrial fibrillation with occasional PVCs, pattern consistent with right bundle branch block and left ventricular hypertrophy. CURRENT LABS: Hemoglobin A1c is 5.4. Lipid profile is notable for low HDL of 30, his total cholesterol, LDL, and triglycerides are not elevated. Electrolyte profile shows sodium 138, potassium 3.9, chloride 101, CO2 of 29, BUN 8, creatinine is 1. His CBC shows WBC 7.1, hemoglobin 13.6 g, hematocrit 42.7%, platelets 202,000. IMPRESSION: 1. Severe aortic stenosis. 2. Acute on chronic, systolic and diastolic heart failure. 3. Atrial fibrillation. 4. Chronic lower extremity venous stasis and dermatitis. 5. Pulmonary hypertension. 6. Obstructive sleep apnea. PLAN: I talked with the patient today at length about possible surgical aortic valve replacement using bioprosthetic versus mechanical valve, as well as possible maze procedure. We also talked about possible transcatheter aortic valve insertion. We talked about the indications, benefits, risks, and usual perioperative course of each particular therapy. Significant risks to open valve replacement include things such as bleeding, infection, pneumonia, blood transfusions, damage to the kidneys including kidney failure and dialysis, damage to the liver or the lungs, heart attack, stroke, abnormal heart rhythm or need for pacemaker, mediastinitis, and even . The transcatheter aortic valve insertion would necessitate further weight loss on his part as the table lymph weight limit is 430 pounds. I used the Society of Thor[employer] Surgeons database to predict risks mortality at 0.992%, any morbidity or mortality of 11.27%. Using [employer], his mortality risk was calculated at 1.8%. This was discussed with the patient today. We will talk with the surgeon and make further disposition. We appreciate very much the opportunity to participate in this gentleman's care. Sincerely, DIMAS/CARLOS [facility] NKishor / [id number] CC: Oral Cervantes M.D. Consultation Report [address] [address] NAME: DE HARDEN : 63 STATUS : ADM IN [facility]#: [id number] AGE: 52 ADM/REG DATE : 04/18/17 MR#: [id number] REPORT SERV DATE: 04/26/17 DICTATED BY: MIO HOUSE DATE: 04/26/17 REPORT STATUS : Draft TRANSCRIBED BY: MODCleveland DATE: 04/26/17 Wilfred Fuentes DO
--- NOTE | ~2017-04-18 | PRECARD ---
H&P [facility] [address] [facility] [place]. [address] NAME: KELECHI HARDEN : 63 STATUS : ADM IN [facility]#: [id number] AGE: 52 ADM/REG DATE : 04/18/17 MR#: [id number] REPORT SERV DATE: 04/27/17 DICTATED BY: YOLANDA DE LA TORRE DATE: 04/27/17 REPORT STATUS : Draft TRANSCRIBED BY: CARLOS DATE: 04/27/17 DATE OF ADMISSION: 04/18/2017 HISTORY OF PRESENT ILLNESS: Mr. Kelechi Harden is a 52-year-old morbidly obese, gentleman with severe aortic stenosis. Mr. Harden describes an approximate five-month history of dyspnea on exertion, easy fatigue. These symptoms have progressed to dyspnea walking on level ground at perhaps 30 feet. He has had no orthopnea or PND. Denies palpitations. He has no chest discomfort at all. He has no presyncope or syncope. His echocardiogram on 04/19/2017, demonstrated ejection fraction 45%, with severe aortic stenosis, peak velocity 4.2 m/sec, aortic valve area of 0.6, VTI ratio 0.2. Cardiac catheterization performed yesterday demonstrates [id number] atherosclerotic plaquing with no significant obstructive disease. The aortic valve area was 0.7, mean gradient 70 mmHg. He had an LVEDP and wedge pressure of 35, right atrial pressure of 25. He has a history of atrial fibrillation. Again, no history of diabetes, hypertension, or heart failure. PAST MEDICAL HISTORY: 1. Morbid obesity. 2. Sleep apnea. MEDICATIONS: Current medications are Lipitor, Cozaar, Coreg, and warfarin. SOCIAL HISTORY: He is single, denies alcohol and tobacco, works in a mailroom. PHYSICAL EXAMINATION: VITAL SIGNS: Blood pressure is about 115/70, heart rate about 70. GENERAL: He is comfortable, flat, no acute distress. HEENT: No xanthelasma; lips without cyanosis LUNGS: Clear to auscultation, no wheezes, rales or rhonchi; good breath sounds. COR: No JVD or hepatojugular reflux, no rubs or gallops, impulse mid clavicular line without carotid or abdominal bruits; normal S1 and S2. 3/6 murmur heard at the right upper sternal border with late peaking, with preserved S2. ABDOMEN: Bowel sounds positive, normal activity, without tenderness, masses or hepatosplenomegaly. EXTREMITIES: Have severe bilateral leg edema. No cyanosis. SKIN: Normal turgor. MUSCULOSKELETAL: Normal muscle strength, without kyphosis/scoliosis. NEURO/PSYCH: Alert and oriented times 4, no apparent anxiety or depression. LABORATORY DATA: BUN is 17, creatinine 0.9. INR is 1.1. Troponin was 0.05. BNP is 539. ASSESSMENT AND PLAN: Mr. Harden is a 52-year-old gentleman with severe aortic stenosis, peak H&P [address] [address] NAME: KELECHI HARDEN : 63 STATUS : ADM IN [facility]#: [id number] AGE: 52 ADM/REG DATE : 04/18/17 MR#: [id number] REPORT SERV DATE: 04/27/17 DICTATED BY: YOLANDA DE LA TORRE DATE: 04/27/17 REPORT STATUS : Draft TRANSCRIBED BY: CARLOS DATE: 04/27/17 gradient 70, valve area of 0.7 by catheterization. He weighed 470 pounds today, 491 pounds on 04/20/2017. He has a markedly elevated right atrial pressure and wedge pressure. So, hopefully with aggressive diuresis, his dyspnea will improve. Also, his weight today was 470 pounds. The weight limit on our table for the hybrid room is 440 pounds. I think he would be at excessive risk for surgical aortic valve replacement, and transcatheter aortic valve placement would be a better option. I will have to discuss with our team, the safest approach. I am not sure that we could do percutaneous access through the femoral approach given his obesity. I think a femoral approach would be preferred if access could be obtained, preferably with percutaneous approach rather than open access. We will also consider the subclavian approach. NOEL/CARLOS Yolanda De La Torre M.D. / [id number] CC: Hanna Wilson,
--- NOTE | ~2017-04-18 | HP ---
History And Physical [facility] [id number] [place]. [address] NAME: DE HARDEN : 63 STATUS : ADM Neeraj PAT#: [id number] AGE: 52 ADM/REG DATE : 04/18/17 MR#: [id number] REPORT SERV DATE: 04/18/17 DICTATED BY: YENI LARA DATE: 04/18/17 REPORT STATUS : Draft TRANSCRIBED BY: MODCleveland DATE: 04/18/17 DATE OF ADMISSION: 04/18/2017 The patient is a 52-year-old male, who presented to [facility] with a complaint of shortness of breath. He denies any chest pain. No abdominal pain. No fever. No rash. No headache. He reported that since he was discharged on 10/12/2016, he was not taking his diuretics. He was not taking any of his medications. He says that he sees Dr. Wilfred Fuentes, and he did not follow up with him last time as well as he said that it is "difficult for me to take home medications. I guess I have to have a habit to take them, but I do not take them". He said also he was drinking more fluids than usual. He was eating without any discretion, salt food and other things. He is complaining of his legs being swollen and being shortness of breath. No chest pain. Afebrile. PAST MEDICAL HISTORY: Known for morbid obesity. He also has congestive heart failure. His echocardiogram which was done last time on October 05, 2016, showed moderately dilated left ventricle with left ventricular systolic dysfunction, focal inferior wall hypokinesis with ejection fraction of 45%, mildly dilated aortic root at 4.2 cm, calcified probably bicuspid aortic valve with restricted leaflet mobility and it also showed mild to moderate aortic stenosis. His other medical problems including morbid obesity; obstructive sleep apnea, he was supposed to see Dr. Penny for a sleep mask but he did not see him. He also has history of atrial fibrillation. He has history of umbilical hernia. SOCIAL HISTORY: No smoking. No alcohol. No recreational drug use. FAMILY HISTORY: He does not know his biological parents. He is adopted. MEDICATIONS: Currently he does not take any medications. ALLERGIES: THERE ARE NO KNOWN DRUG ALLERGIES. HE ALSO HAS HISTORY OF ANASARCA AND HISTORY OF IRON-DEFICIENCY ANEMIA. PHYSICAL EXAMINATION: GENERAL: Morbidly obese male, not in acute distress, resting quietly. VITAL SIGNS: Blood pressure 133/82, temperature 97.2, heart rate 91, respiratory rate 20, and oxygen saturation 99 on room air. HEENT: Head atraumatic, normocephalic. Conjunctivae clear. Pupils are equal and reactive to light and accommodation. Extraocular muscles are intact. NECK: Supple. Trachea is midline. No supraclavicular or cervical lymphadenopathy. LUNGS: Diminished breath sounds bilaterally. Decreased respiratory effort secondary to morbid obesity. CARDIOVASCULAR SYSTEM: Irregularly irregular rate and rhythm. Point of maximal impulse not displaced. ABDOMEN: Extremely obese. Soft. No tenderness to palpation. Positive normoactive bowel sounds. EXTREMITIES: 2+ pedal edema. Morbidly obese with chronic venous stasis changes. History And Physical [address] [address] NAME: DE HARDEN : 63 STATUS : ADM Neeraj PAT#: [id number] AGE: 52 ADM/REG DATE : 04/18/17 MR#: [id number] REPORT SERV DATE: 04/18/17 DICTATED BY: YENI LARA DATE: 04/18/17 REPORT STATUS : Draft TRANSCRIBED BY: CARLOS DATE: 04/18/17 PSYCHIATRIC: Normal mood and affect. SKIN: Normal color and turgor. LABORATORY RESULTS: Sodium 139, potassium 4.2, chloride 108, carbon dioxide 25, BUN 14, creatinine 0.94, glucose 85, troponin 0.06, and magnesium 1.9. White count 7, hemoglobin 13.4, hematocrit 41.6, platelet count 196, PT 15.8, and INR 1.3. Chest x-ray showed cardiomegaly with some increased vascular markings, consistent with pulmonary edema. His BNP was 539.2. Troponin 0.06. His EKG showed atrial fibrillation with right bundle branch block and with a heart rate of 96. ASSESSMENT AND PLAN: This is a 52-year-old morbidly obese man with a history of congestive heart failure with a history of probably bicuspid valve and moderate aortic stenosis with a history of atrial fibrillation and with a history of medical noncompliance, presented with 1. With CHF exacerbation, acute systolic dysfunction/valvular heart disease/volume overload. 2. Moderate aortic stenosis per echocardiography done in September 2016. 3. Morbid obesity. 4. Atrial fibrillation, currently rate controlled. 5. History of obstructive sleep apnea, noncompliant, did not follow up with Dr. Penny to have a CPAP mask, noncompliance with diuretics, and all cardiac medications as well. The patient was already given Lasix 80 mg IV in the emergency room and had a Martinez placement. We will continue diuresis at Bumex 1 mg IV b.i.d. We will also restart his Coreg which he was using before this admission during previous admissions, but he did not continue at home. We will check his electrolytes. We will ask compensation and hris analyst to evaluate this patient and my partner will see this patient starting tomorrow morning. He will also need heart failure education as well as the patient was explained that if he will not take his medications regularly, his prognosis will be poor. MG/MODL Yeni Lara M.D. / [id number] CC: Wilfred Fuentes DO
--- NOTE | ~2017-04-18 | CN ---
Consultation Report [facility] [address] [place]. [address] NAME: KELECHI HARDEN : 63 STATUS : ADM Neeraj PAT#: [id number] AGE: 52 ADM/REG DATE : 04/18/17 MR#: [id number] REPORT SERV DATE: 04/19/17 DICTATED BY: DATE: REPORT STATUS : Draft TRANSCRIBED BY: MODL DATE: 04/19/17 DATE OF CONSULTATION: 04/19/2017 REASON FOR CONSULTATION: Acute on chronic systolic heart failure, moderate stenosis, ongoing atrial fibrillation. HISTORY OF PRESENT ILLNESS: Mr. Harden is a very pleasant 52-year-old male with a past medical history notable for systolic heart failure with an ejection fraction of 45%, moderate stenosis with a possible bicuspid valve, morbid obesity, atrial fibrillation, and unknown coronary status, who presented to [facility] yesterday with a chief complaint of progressive dyspnea on exertion. The patient was hospitalized in the fall to October and was diagnosed with systolic heart failure at that time. He does not endorse having a heart catheterization, and thus it is unknown whether or not he has had an ischemic cardiomyopathy. It sounds like he also was in AFib at that time, was diuresed, and sent to cardiac rehab on an appropriate heart failure regimen including carvedilol, losartan, Aldactone, and apixaban. It sounds like he did very very well at rehab, losing upwards of 37 pounds, but over time he has noted that despite a reasonable attempt at dietary adherence, he has gained considerable amounts of weight. He attributes this to two things. First is the fact that he stopped taking his medicines. It is unclear whether or not he was on a diuretic; he was not on diuretic at discharge, but this may have been done at rehab on their discharge. He also endorses not taking any of his cardiac medicines whatsoever, including the apixaban. The other reason for the patient's possible decompensation is the aforementioned dietary indiscretion. It does not sound like he is fluid restricting, and that he is not taking his weights daily. He presents with increasing dyspnea on exertion. He has noted that he has had difficulty with respect to ambulating even to the bathroom, though it is difficult to know what portion of this is due to the morbid obesity versus acute on chronic heart failure versus progressive aortic stenosis. He has not noted any chest pain, however, but it is unknown whether or not the shortness of breath is anginal equivalent. With respect to the aortic stenosis, I am looking at the summary report done in 09/2016. He had a dilated aortic root and probably a bicuspid aortic valve with peak velocities greater than 5 m/sec, though it seems like there is only exhi-ul-dadsugof aortic stenosis. My interpretation of this is somewhat limited, but it is possible that he has severe asymptomatic aortic stenosis, or he may have both bicuspid aortic valve and a sub or supra- aortic membrane that is causing the elevated gradient. As for the atrial fibrillation, it does not sound like he has RVR. Occasionally, he notices that he has palpitations. He was admitted to the Hospitalist Service, given IV Bumex overnight, and given subcu heparin. He was also started on carvedilol. Consultation Report [facility] [id number] [place]. [address] NAME: KELECHI HARDEN : 63 STATUS : ADM Neeraj PAT#: [id number] AGE: 52 ADM/REG DATE : 04/18/17 MR#: [id number] REPORT SERV DATE: 04/19/17 DICTATED BY: DATE: REPORT STATUS : Draft TRANSCRIBED BY: MODL DATE: 04/19/17 PAST MEDICAL HISTORY: 1. Systolic heart failure, unclear etiology at this point. 2. Morbid obesity. 3. Hypertension. 4. Atrial fibrillation. 5. Possible bicuspid aortic valve. 6. Precipitous weight gain. PAST SURGICAL HISTORY: Noncontributory. REVIEW OF SYSTEMS: A 10-point review of systems was performed. In addition to that which I mentioned above, he has noted increasing urinary frequency. He also notes that he has had some flushing, but he denies any sort of syncope, lightheadedness, or dizziness that would be classically associated with aortic stenosis. SOCIAL HISTORY: The patient is employed. He denies smoking, alcohol, or recreational drug use. FAMILY HISTORY: He does not have a pertinent family history as he is adopted and does not know his biological parents. MEDICATIONS: He is not presently on any medications at home, though he was discharged from the hospital on apixaban, carvedilol, losartan, and Aldactone, though no specific loop diuretic to my knowledge. ALLERGIES: THERE ARE NO KNOWN DRUG ALLERGIES. PHYSICAL EXAMINATION: VITAL SIGNS: Heart rate 61 to 78, blood pressures 133-142/82-96, weight is 246 kg, respirations 20%, saturating 95% on 2 L nasal cannula. In's and out's are 240/900, net negative 660. GENERAL: He is a morbidly obese pleasant male in no acute distress. He is wearing a nasal cannula. HEENT: Normocephalic, atraumatic. EOMI. Mucous membranes are moist. NECK: JVP is elevated to the tragus. LUNGS: Clear to auscultation anteriorly and laterally. CARDIOVASCULAR: The patient is in irregularly irregular rhythm. He has a 3/6 systolic ejection murmur, which appears to obscure S2. This is difficult to appreciate secondary to body habitus. Peripheral pulses do appear slightly delayed. There are no diastolic murmurs appreciated. ABDOMEN: Morbidly obese with pitting edema. Hypoactive bowel sounds. EXTREMITIES: 3+ edema through the thighs bilaterally. The lower extremities have evidence of bilateral venous stasis. Consultation Report [address] [address] NAME: KELECHI HARDEN : 63 STATUS : ADM Neeraj PAT#: [id number] AGE: 52 ADM/REG DATE : 04/18/17 MR#: [id number] REPORT SERV DATE: 04/19/17 DICTATED BY: DATE: REPORT STATUS : Draft TRANSCRIBED BY: MODCleveland DATE: 04/19/17 NEUROLOGIC: The patient is alert and oriented x4. Cranial nerves are grossly intact. LABORATORY DATA: CBC: Hemoglobin 12.7, hematocrit 40, white count 7.3, platelets 191. Chemistry: Sodium 142, potassium 3.8, bicarb 29, creatinine 1, GFR 82, glucose 103, magnesium 1.9. Troponin 0.05. IMAGING: EKG is consistent with atrial fibrillation and a right bundle with nonspecific T- wave inversions in the lateral leads. ASSESSMENT AND PLAN: Mr. Kelechi Harden is a 52-year-old male with multiple cardiac issues, 1. Acute on chronic systolic heart failure with unknown etiology. 2. Possibility of moderate to possibly severe aortic stenosis. 3. Atrial fibrillation. With respect to the acutely decompensated systolic heart failure, over the next 48 hours I would like to see aggressive volume loss. I am going to put him on a Lasix drip and I would like to see net negative 2 to 3 L of fluid off him daily. He will need daily weights and aggressive electrolyte supplementation. He is not decompensated from a cardiovascular standpoint, so we will be able to continue him on carvedilol, and I will add an ERWIN. We will consider adding MRA in the near future. With respect to the patient's etiology for his heart failure, I think we can kill two birds with one stone. He needs to have a heart catheterization, but he needs to be much more volume optimized than he is presently in order to lay flat on our table. I suspect this will happen next week, though there is a long shot that this could happen on Monday if he aggressively diureses. We would get both coronary angiography as well as assess for the possibility of aortic stenosis by hemodynamic measurements. With respect to the , we are going to repeat an echo today and try to get a better understanding as to the severity of his . It absolutely could be the case that he has aortic stenosis that may be requiring intervention. We will need to assess this both by TTE and catheterization to definitively put it on or off the table. With respect to the patient's atrial fibrillation, I will start him on a heparin drip. He seems rate controlled at that time. I am not anticipating any sort of cardioversion as this will obligate him to anticoagulation, which will interfere with the aforementioned procedures that I am anticipating. Truthfully, I think it will be difficult for him to stay in sinus rhythm based on the fact that he has enlarged left atrium and a body habitus that does not appear favorable. Depending on how the hospitalization goes, a MADHU cardioversion may be warranted on discharge. I anticipate that this patient has many many days of diuresis ahead of him and a relatively significant cardiac workup. We will follow along with you as we go. Consultation Report [facility] [address] [facility] [place] [address] NAME: KELECHI HARDEN : 63 STATUS : ADM Neeraj PAT#: [id number] AGE: 52 ADM/REG DATE : 04/18/17 MR#: [id number] REPORT SERV DATE: 04/19/17 DICTATED BY: DATE: REPORT STATUS : Draft TRANSCRIBED BY: CARLOS DATE: 04/19/17 Thanks for this very interesting consult. EPL/CARLOS Erick Hodges IV, MD / [id number] CC: Hanna Riggs DO
--- NOTE | ~2017-04-18 | DS ---
Discharge Summary [facility] [id number] [place]. [address] NAME: DE HARDEN : 63 STATUS : DIS IN PAT#: [id number] AGE: 52 ADM/REG DATE : 04/18/17 MR#: [id number] REPORT SERV DATE: 05/03/17 DICTATED BY: STEVEN FRITZ DATE: 05/01/17 REPORT STATUS : Draft TRANSCRIBED BY: MODL DATE: 05/01/17 ADMISSION DATE: 04/18/2017 DISCHARGE DATE: 05/01/2017 CONSULTING PHYSICIAN: Dr. Hodges and Dr. De La Torre for Cardiology. FINAL DIAGNOSES: 1. Severe aortic stenosis. 2. Acute on chronic systolic and diastolic congestive heart failure. 3. Paroxysmal atrial fibrillation. 4. Right bundle branch block. 5. Possible obstructive sleep apnea. 6. Morbid obesity. 7. Chronic venous stasis. 8. Noncompliant. DIAGNOSTIC EXAMS: 1. Cardiac cath showing severe with a gradient of 70 mmHg, calculated aortic valve area of 0.7 sq cm. 2. Epicardial coronary arteries with caqf-fk-[id number] atherosclerotic plaques, no significant occlusive coronary artery disease, severely elevated left ventricular end- diastolic pressure and pulmonary capillary wedge pressure of 35 mmHg. Severe group 2 pulmonary hypertension with mean pulmonary artery pressure of 55 mmHg, severely elevated right atrial pressure of 25 mmHg. Carotid ultrasound showing right/left carotid category 1, no significant luminal stenosis. Right vertebral antegrade flow, subclavian velocity to 9 cm per second. Left vertebral not visualize. Question vertebral occlusion or congenital under development. Left subclavian 84 cm/second. CTA of the abdomen and chest showing densely calcified aortic valve without aortic aneurysm, ascending aorta 3.8 cm in dimension, small right pleural effusion with mild right basilar atelectasis and large pulmonic trunk, which may be due to underlying pulmonary hypertension, mild cardiomegaly, degraded overall image quality. Large left midline supraumbilical ventral wall hernia, containing nonobstructive bowel looks, normal caliber aorta, iliac and external iliac vessels are difficult to visualize, mild enlarged inguinal lymph nodes, nonspecific. HOSPITAL COURSE: Please refer to the H and P done by Dr. Powell on 04/18 and the interim discharge done by Dr. Flowers on 04/2017 since I took care of this patient. The patient is aggressively being diuresed. He has been losing weight with increased urine output without any significant change in his creatinine. His creatinine and his weight which was 246 kg on admission is down to 201 kg. The patient was evaluated by both a CTVS and also by the TAVR team and it was decided upon that he would pursue the TAVR course. However, he needs to be optimized first, so he was aggressively diuresed and will continue to be diuresed on discharge. The patient was also placed on Coumadin and it is still subtherapeutic of 1.4. The patient expresses wishes to go home as he is doing much better, walking around, and once we get the Cardiology to agree, we will be discharging him with the above diagnosis. He will be on the following medications; Lipitor 40 mg at bedtime, Coreg 6.25 mg twice a day, Discharge Summary [address] [address] NAME: DE HARDEN : 63 STATUS : DIS IN PAT#: [id number] AGE: 52 ADM/REG DATE : 04/18/17 MR#: [id number] REPORT SERV DATE: 05/03/17 DICTATED BY: STEVEN FRITZ. DATE: 05/01/17 REPORT STATUS : Draft TRANSCRIBED BY: CARLOS DATE: 05/01/17 Cozaar 25 mg a day, potassium 20 mEq twice a day, Demadex 40 mg twice a day, Coumadin 10 mg at bedtime. He will need to follow up with the [facility] this Monday. Follow up with Wilfred Fuentes, his PCP in one to two weeks. Follow up with Cardio in two weeks with Dr. Hodges and the TAVR team. This has been explained to him at length. TIME SPENT: 40 minutes. DALLIN/CARLOS Steven Fritz M.D. / [id number] CC: Hanna Wilson,
[2017-04-18 15:42] LABS: BASOPHILS 0.3 %; BASOPHILS ABSOLUTE 0.02 10/3/uL (0.0-0.16); EOSINOPHILS ABSOLUTE 0.07 10/3/uL (0.0-0.53); ER CBC TAT 0 Hrs 05 Mins; HEMATOCRIT 41.6 % (40.0-51.0); HEMOGLOBIN 13.4 g/dL (13.6-17.8); IMMATURE GRANULOCYTES 0.1 %; IMMATURE GRANULOCYTES ABSOLUTE 0.01 10/3/uL (0.0-0.11); LYMPHOCYTES 14.7 %; LYMPHOCYTES ABSOLUTE 1.02 10/3/uL (0.67-4.30); MEAN CORPUS HGB CONC 32.2 g/dL (32.0-36.0); MEAN CORPUSCULAR HEMOGLOB 27.9 pg (26.0-34.0); MEAN PLATELET VOLUME 10.6 fL (9.2-13.0); MONOCYTES 9.1 %; MONOCYTES ABSOLUTE 0.63 10/3/uL (0.21-1.20); NEUTROPHILS 74.8 %; NEUTROPHILS ABSOLUTE 5.21 10/3/uL (2.02-8.40); RED CELL COUNT 4.81 10/6/uL (4.7-6.1)
[2017-04-18 15:45] LABS: MANUAL DIFF NO %; MEAN CORPUSCULAR VOLUME 86.5 fL (80-100); PLATELET COUNT 196 10/3/uL (150-400)
[2017-04-18 15:48] LABS: INTERNATIONAL NORMAL RATI 1.3 UNITS (-); PARTIAL THROMBO TIME 34.3 SEC (22.5-37.2); PROTIME (NOT ORD) 15.8 SEC (12.0-14.5)
[2017-04-18 15:59] LABS: BUN (BLOOD UREA NITROGEN) 14 MG/DL (6-23); CALCIUM, SERUM 8.9 MG/DL (8.5-10.4); CHLORIDE, SERUM 108 MMOL/L (96-112); CREATININE 0.94 MG/DL (0.70-1.30); GFR AFRICAN AMERICAN 107 ML/MIN (>=60); GFR NON AFRICAN AMERICAN 92 ML/MIN (>=60); GLUCOSE, SERUM 85 MG/DL (60-99); POTASSIUM, SERUM 4.2 MMOL/L (3.5-5.3); SODIUM, SERUM 139 MMOL/L (135-148)
[2017-04-18 16:00] LABS: CHEST PAIN PROFILE TAT 0 Hrs 23 Mins; CO2 (CARBON DIOXIDE) 25 MMOL/L (24-34); TROPONIN I 0.06 NG/ML (<0.05)
[2017-04-18] MEDS ORDERED: *DENIES (18:31)
[2017-04-19 04:37] LABS: BASOPHILS 0.1 %; BASOPHILS ABSOLUTE 0.01 10/3/uL (0.0-0.16); EOSINOPHILS 2.2 %; EOSINOPHILS ABSOLUTE 0.16 10/3/uL (0.0-0.53); HEMATOCRIT 40.8 % (40.0-51.0); HEMOGLOBIN 12.7 g/dL (13.6-17.8); IMMATURE GRANULOCYTES 0.1 %; IMMATURE GRANULOCYTES ABSOLUTE 0.01 10/3/uL (0.0-0.11); LYMPHOCYTES ABSOLUTE 1.25 10/3/uL (0.67-4.30); MEAN CORPUS HGB CONC 31.1 g/dL (32.0-36.0); MEAN CORPUSCULAR HEMOGLOB 27.2 pg (26.0-34.0); MEAN CORPUSCULAR VOLUME 87.4 fL (80-100); MONOCYTES ABSOLUTE 0.81 10/3/uL (0.21-1.20); NEUTROPHILS 69.6 %; PLATELET COUNT 191 10/3/uL (150-400); RBC DISTRIBUTION WIDTH 15.2 % (12.0-16.0); RED CELL COUNT 4.67 10/6/uL (4.7-6.1); WHITE BLOOD CELLS 7.3 10/3/uL (4.5-10.5)
[2017-04-19 04:38] LABS: MANUAL DIFF NO %
[2017-04-19 04:49] LABS: BUN (BLOOD UREA NITROGEN) 15 MG/DL (6-23); CALCIUM, SERUM 8.8 MG/DL (8.5-10.4); CHLORIDE, SERUM 106 MMOL/L (96-112); CO2 (CARBON DIOXIDE) 29 MMOL/L (24-34); CREATININE 1.04 MG/DL (0.70-1.30); GFR AFRICAN AMERICAN 95 ML/MIN (>=60); GFR NON AFRICAN AMERICAN 82 ML/MIN (>=60); POTASSIUM, SERUM 3.8 MMOL/L (3.5-5.3); SODIUM, SERUM 142 MMOL/L (135-148)
[2017-04-19 04:52] LABS: GLUCOSE, SERUM 103 MG/DL (60-99)
[2017-04-19 08:47] LABS: TROPONIN I 0.05 NG/ML (<0.05)
[2017-04-19 11:26] LABS: DIRECT BILIRUBIN 0.3 MG/DL (0.0-0.4); INDIRECT BILIRUBIN(NOT ORDER) 0.5 MG/DL (0.1-0.9); TOTAL BILIRUBIN 0.8 MG/DL (0-1.2); TOTAL PROTEIN 6.7 G/DL (6.0-8.5)
[2017-04-20 06:46] LABS: BUN (BLOOD UREA NITROGEN) 13 MG/DL (6-23); CALCIUM, SERUM 8.6 MG/DL (8.5-10.4); CHLORIDE, SERUM 102 MMOL/L (96-112); CO2 (CARBON DIOXIDE) 30 MMOL/L (24-34); CREATININE 0.97 MG/DL (0.70-1.30); GFR AFRICAN AMERICAN 103 ML/MIN (>=60); GFR NON AFRICAN AMERICAN 89 ML/MIN (>=60); GLUCOSE, SERUM 91 MG/DL (60-99); POTASSIUM, SERUM 3.8 MMOL/L (3.5-5.3); SODIUM, SERUM 139 MMOL/L (135-148)
[2017-04-21 05:54] LABS: BUN (BLOOD UREA NITROGEN) 12 MG/DL (6-23); CALCIUM, SERUM 8.7 MG/DL (8.5-10.4); CHLORIDE, SERUM 96 MMOL/L (96-112); CO2 (CARBON DIOXIDE) 32 MMOL/L (24-34); CREATININE 0.97 MG/DL (0.70-1.30); GFR AFRICAN AMERICAN 103 ML/MIN (>=60); GFR NON AFRICAN AMERICAN 89 ML/MIN (>=60); GLUCOSE, SERUM 80 MG/DL (60-99); POTASSIUM, SERUM 3.5 MMOL/L (3.5-5.3); SODIUM, SERUM 135 MMOL/L (135-148)
[2017-04-22 06:02] LABS: BASOPHILS 0.3 %; BASOPHILS ABSOLUTE 0.02 10/3/uL (0.0-0.16); EOSINOPHILS 2.6 %; HEMATOCRIT 43.8 % (40.0-51.0); HEMOGLOBIN 14.2 g/dL (13.6-17.8); IMMATURE GRANULOCYTES 0.1 %; IMMATURE GRANULOCYTES ABSOLUTE 0.01 10/3/uL (0.0-0.11); LYMPHOCYTES 18.4 %; LYMPHOCYTES ABSOLUTE 1.41 10/3/uL (0.67-4.30); MEAN CORPUS HGB CONC 32.4 g/dL (32.0-36.0); MEAN CORPUSCULAR HEMOGLOB 27.7 pg (26.0-34.0); MEAN CORPUSCULAR VOLUME 85.5 fL (80-100); MEAN PLATELET VOLUME 10.5 fL (9.2-13.0); MONOCYTES 10.1 %; MONOCYTES ABSOLUTE 0.77 10/3/uL (0.21-1.20); NEUTROPHILS 68.5 %; NEUTROPHILS ABSOLUTE 5.24 10/3/uL (2.02-8.40); PLATELET COUNT 216 10/3/uL (150-400); RBC DISTRIBUTION WIDTH 14.9 % (12.0-16.0); RED CELL COUNT 5.12 10/6/uL (4.7-6.1); WHITE BLOOD CELLS 7.7 10/3/uL (4.5-10.5)
[2017-04-22 06:03] LABS: MANUAL DIFF NO %
[2017-04-22 06:10] LABS: CALCIUM, SERUM 8.8 MG/DL (8.5-10.4); CHLORIDE, SERUM 99 MMOL/L (96-112); CO2 (CARBON DIOXIDE) 32 MMOL/L (24-34); CREATININE 1.16 MG/DL (0.70-1.30); GFR AFRICAN AMERICAN 83 ML/MIN (>=60); GFR NON AFRICAN AMERICAN 72 ML/MIN (>=60); GLUCOSE, SERUM 95 MG/DL (60-99); POTASSIUM, SERUM 3.9 MMOL/L (3.5-5.3); SODIUM, SERUM 139 MMOL/L (135-148)
[2017-04-22 06:12] LABS: BUN (BLOOD UREA NITROGEN) 16 MG/DL (6-23)
[2017-04-23 01:24] LABS: BUN (BLOOD UREA NITROGEN) 16 MG/DL (6-23); CALCIUM, SERUM 9.3 MG/DL (8.5-10.4); CHLORIDE, SERUM 100 MMOL/L (96-112); CO2 (CARBON DIOXIDE) 31 MMOL/L (24-34); CREATININE 1.04 MG/DL (0.70-1.30); GFR AFRICAN AMERICAN 95 ML/MIN (>=60); GFR NON AFRICAN AMERICAN 82 ML/MIN (>=60); GLUCOSE, SERUM 104 MG/DL (60-99); POTASSIUM, SERUM 3.8 MMOL/L (3.5-5.3); SODIUM, SERUM 138 MMOL/L (135-148)
[2017-04-24 01:32] LABS: BASOPHILS 0.2 %; BASOPHILS ABSOLUTE 0.01 10/3/uL (0.0-0.16); EOSINOPHILS 3.1 %; HEMATOCRIT 41.2 % (40.0-51.0); HEMOGLOBIN 13.2 g/dL (13.6-17.8); IMMATURE GRANULOCYTES 0.2 %; IMMATURE GRANULOCYTES ABSOLUTE 0.01 10/3/uL (0.0-0.11); LYMPHOCYTES 22.4 %; LYMPHOCYTES ABSOLUTE 1.42 10/3/uL (0.67-4.30); MEAN CORPUSCULAR HEMOGLOB 27.4 pg (26.0-34.0); MEAN CORPUSCULAR VOLUME 85.5 fL (80-100); MEAN PLATELET VOLUME 11.1 fL (9.2-13.0); MONOCYTES 10.6 %; MONOCYTES ABSOLUTE 0.67 10/3/uL (0.21-1.20); NEUTROPHILS 63.5 %; NEUTROPHILS ABSOLUTE 4.04 10/3/uL (2.02-8.40); PLATELET COUNT 198 10/3/uL (150-400); RBC DISTRIBUTION WIDTH 14.9 % (12.0-16.0); RED CELL COUNT 4.82 10/6/uL (4.7-6.1); WHITE BLOOD CELLS 6.4 10/3/uL (4.5-10.5)
[2017-04-24 01:34] LABS: MANUAL DIFF NO %
[2017-04-24 01:42] LABS: BUN (BLOOD UREA NITROGEN) 16 MG/DL (6-23); CHLORIDE, SERUM 98 MMOL/L (96-112); CO2 (CARBON DIOXIDE) 32 MMOL/L (24-34); CREATININE 0.96 MG/DL (0.70-1.30); GFR AFRICAN AMERICAN 104 ML/MIN (>=60); GFR NON AFRICAN AMERICAN 90 ML/MIN (>=60); GLUCOSE, SERUM 107 MG/DL (60-99); POTASSIUM, SERUM 3.9 MMOL/L (3.5-5.3); SODIUM, SERUM 137 MMOL/L (135-148)
[2017-04-25 06:27] LABS: INTERNATIONAL NORMAL RATI 1.2 UNITS (-); PROTIME (NOT ORD) 14.6 SEC (12.0-14.5)
[2017-04-25 06:28] LABS: PARTIAL THROMBO TIME 83.5 SEC (22.5-37.2)
[2017-04-25 06:29] LABS: BUN (BLOOD UREA NITROGEN) 17 MG/DL (6-23); CHLORIDE, SERUM 99 MMOL/L (96-112); CO2 (CARBON DIOXIDE) 30 MMOL/L (24-34); CREATININE 0.99 MG/DL (0.70-1.30); GFR AFRICAN AMERICAN 100 ML/MIN (>=60); GFR NON AFRICAN AMERICAN 87 ML/MIN (>=60); GLUCOSE, SERUM 93 MG/DL (60-99); POTASSIUM, SERUM 3.9 MMOL/L (3.5-5.3); SODIUM, SERUM 136 MMOL/L (135-148)
[2017-04-26 08:03] LABS: BASOPHILS 0.3 %; BASOPHILS ABSOLUTE 0.02 10/3/uL (0.0-0.16); EOSINOPHILS 3.4 %; EOSINOPHILS ABSOLUTE 0.24 10/3/uL (0.0-0.53); HEMATOCRIT 42.7 % (40.0-51.0); HEMOGLOBIN 13.6 g/dL (13.6-17.8); IMMATURE GRANULOCYTES 0.3 %; IMMATURE GRANULOCYTES ABSOLUTE 0.02 10/3/uL (0.0-0.11); LYMPHOCYTES 15.1 %; LYMPHOCYTES ABSOLUTE 1.08 10/3/uL (0.67-4.30); MEAN CORPUS HGB CONC 31.9 g/dL (32.0-36.0); MEAN CORPUSCULAR HEMOGLOB 27.6 pg (26.0-34.0); MEAN CORPUSCULAR VOLUME 86.8 fL (80-100); MEAN PLATELET VOLUME 11.3 fL (9.2-13.0); MONOCYTES ABSOLUTE 0.86 10/3/uL (0.21-1.20); NEUTROPHILS 68.9 %; NEUTROPHILS ABSOLUTE 4.92 10/3/uL (2.02-8.40); PLATELET COUNT 202 10/3/uL (150-400); RBC DISTRIBUTION WIDTH 15.1 % (12.0-16.0); RED CELL COUNT 4.92 10/6/uL (4.7-6.1); WHITE BLOOD CELLS 7.1 10/3/uL (4.5-10.5)
[2017-04-26 08:04] LABS: MANUAL DIFF NO %
[2017-04-26 08:09] LABS: INTERNATIONAL NORMAL RATI 1.2 UNITS (-); PROTIME (NOT ORD) 14.6 SEC (12.0-14.5)
[2017-04-26 08:11] LABS: PARTIAL THROMBO TIME 102.2 SEC (22.5-37.2)
[2017-04-26 08:16] LABS: BUN (BLOOD UREA NITROGEN) 18 MG/DL (6-23); CALCIUM, SERUM 8.9 MG/DL (8.5-10.4); CHLORIDE, SERUM 101 MMOL/L (96-112); CO2 (CARBON DIOXIDE) 29 MMOL/L (24-34); GFR AFRICAN AMERICAN 99 ML/MIN (>=60); GFR NON AFRICAN AMERICAN 86 ML/MIN (>=60); GLUCOSE, SERUM 92 MG/DL (60-99); POTASSIUM, SERUM 3.9 MMOL/L (3.5-5.3); SODIUM, SERUM 138 MMOL/L (135-148)
[2017-04-26 08:17] LABS: CHOL/HDL RATIO(NOT ORDER) 2.5 (0-5); CHOLESTEROL 76 MG/DL (< 200); HDL CHOLESTEROL 30 MG/DL (> 39); LDL CHOLESTEROL 35 MG/DL (< 130); NON-HDL CHOLESTEROL 46 MG/DL (< 160); TRIGLYCERIDE 58 MG/DL (< 150)
[2017-04-27 06:34] LABS: INTERNATIONAL NORMAL RATI 1.2 UNITS (-); PROTIME (NOT ORD) 14.8 SEC (12.0-14.5)
[2017-04-27 06:44] LABS: BUN (BLOOD UREA NITROGEN) 17 MG/DL (6-23); CALCIUM, SERUM 8.9 MG/DL (8.5-10.4); CHLORIDE, SERUM 97 MMOL/L (96-112); CHOL/HDL RATIO(NOT ORDER) 2.8 (0-5); CHOLESTEROL 78 MG/DL (< 200); CO2 (CARBON DIOXIDE) 30 MMOL/L (24-34); CREATININE 0.89 MG/DL (0.70-1.30); GFR AFRICAN AMERICAN 113 ML/MIN (>=60); GFR NON AFRICAN AMERICAN 98 ML/MIN (>=60); GLUCOSE, SERUM 85 MG/DL (60-99); HDL CHOLESTEROL 28 MG/DL (> 39); LDL CHOLESTEROL 38 MG/DL (< 130); NON-HDL CHOLESTEROL 50 MG/DL (< 160); SODIUM, SERUM 134 MMOL/L (135-148); TRIGLYCERIDE 62 MG/DL (< 150)
[2017-04-27 06:49] LABS: BASOPHILS 0.4 %; BASOPHILS ABSOLUTE 0.03 10/3/uL (0.0-0.16); EOSINOPHILS 2.8 %; HEMATOCRIT 41.9 % (40.0-51.0); HEMOGLOBIN 13.6 g/dL (13.6-17.8); IMMATURE GRANULOCYTES 0.1 %; IMMATURE GRANULOCYTES ABSOLUTE 0.01 10/3/uL (0.0-0.11); LYMPHOCYTES 12.8 %; LYMPHOCYTES ABSOLUTE 0.93 10/3/uL (0.67-4.30); MEAN CORPUS HGB CONC 32.5 g/dL (32.0-36.0); MEAN CORPUSCULAR HEMOGLOB 27.9 pg (26.0-34.0); MEAN CORPUSCULAR VOLUME 85.9 fL (80-100); MEAN PLATELET VOLUME 11.5 fL (9.2-13.0); MONOCYTES 12.1 %; MONOCYTES ABSOLUTE 0.88 10/3/uL (0.21-1.20); NEUTROPHILS 71.8 %; NEUTROPHILS ABSOLUTE 5.22 10/3/uL (2.02-8.40); PLATELET COUNT 202 10/3/uL (150-400); RBC DISTRIBUTION WIDTH 15.2 % (12.0-16.0); RED CELL COUNT 4.88 10/6/uL (4.7-6.1); WHITE BLOOD CELLS 7.3 10/3/uL (4.5-10.5)
[2017-04-27 06:51] LABS: MANUAL DIFF NO %
[2017-04-28 04:59] LABS: INTERNATIONAL NORMAL RATI 1.2 UNITS (-); PROTIME (NOT ORD) 15.3 SEC (12.0-14.5)
[2017-04-28 05:08] LABS: BUN (BLOOD UREA NITROGEN) 20 MG/DL (6-23); CALCIUM, SERUM 9.3 MG/DL (8.5-10.4); CHLORIDE, SERUM 100 MMOL/L (96-112); CO2 (CARBON DIOXIDE) 28 MMOL/L (24-34); CREATININE 1.01 MG/DL (0.70-1.30); GFR AFRICAN AMERICAN 98 ML/MIN (>=60); GFR NON AFRICAN AMERICAN 85 ML/MIN (>=60); GLUCOSE, SERUM 94 MG/DL (60-99); POTASSIUM, SERUM 4.1 MMOL/L (3.5-5.3); SODIUM, SERUM 135 MMOL/L (135-148)
[2017-04-29 06:59] LABS: BUN (BLOOD UREA NITROGEN) 21 MG/DL (6-23); CALCIUM, SERUM 8.7 MG/DL (8.5-10.4); CHLORIDE, SERUM 99 MMOL/L (96-112); CO2 (CARBON DIOXIDE) 29 MMOL/L (24-34); CREATININE 1.05 MG/DL (0.70-1.30); GFR AFRICAN AMERICAN 93 ML/MIN (>=60); GFR NON AFRICAN AMERICAN 81 ML/MIN (>=60); GLUCOSE, SERUM 99 MG/DL (60-99); POTASSIUM, SERUM 3.9 MMOL/L (3.5-5.3); SODIUM, SERUM 136 MMOL/L (135-148)
[2017-04-29 07:25] LABS: INTERNATIONAL NORMAL RATI 1.3 UNITS (-); PROTIME (NOT ORD) 16.1 SEC (12.0-14.5)
[2017-04-30 04:59] LABS: INTERNATIONAL NORMAL RATI 1.4 UNITS (-); PROTIME (NOT ORD) 16.9 SEC (12.0-14.5)
[2017-04-30 05:07] LABS: BUN (BLOOD UREA NITROGEN) 23 MG/DL (6-23); CALCIUM, SERUM 9.2 MG/DL (8.5-10.4); CHLORIDE, SERUM 97 MMOL/L (96-112); CO2 (CARBON DIOXIDE) 30 MMOL/L (24-34); CREATININE 1.08 MG/DL (0.70-1.30); GFR AFRICAN AMERICAN 90 ML/MIN (>=60); GFR NON AFRICAN AMERICAN 78 ML/MIN (>=60); GLUCOSE, SERUM 108 MG/DL (60-99); POTASSIUM, SERUM 3.7 MMOL/L (3.5-5.3); SODIUM, SERUM 136 MMOL/L (135-148)
[2017-05-01 06:31] LABS: BASOPHILS 0.4 %; BASOPHILS ABSOLUTE 0.03 10/3/uL (0.0-0.16); EOSINOPHILS 3.5 %; EOSINOPHILS ABSOLUTE 0.25 10/3/uL (0.0-0.53); HEMOGLOBIN 14.9 g/dL (13.6-17.8); IMMATURE GRANULOCYTES 0.3 %; IMMATURE GRANULOCYTES ABSOLUTE 0.02 10/3/uL (0.0-0.11); LYMPHOCYTES 22.6 %; LYMPHOCYTES ABSOLUTE 1.62 10/3/uL (0.67-4.30); MEAN CORPUS HGB CONC 32.4 g/dL (32.0-36.0); MEAN CORPUSCULAR HEMOGLOB 27.7 pg (26.0-34.0); MEAN CORPUSCULAR VOLUME 85.7 fL (80-100); MEAN PLATELET VOLUME 11.1 fL (9.2-13.0); MONOCYTES 11.4 %; MONOCYTES ABSOLUTE 0.82 10/3/uL (0.21-1.20); NEUTROPHILS 61.8 %; NEUTROPHILS ABSOLUTE 4.43 10/3/uL (2.02-8.40); PLATELET COUNT 234 10/3/uL (150-400); RBC DISTRIBUTION WIDTH 14.8 % (12.0-16.0); RED CELL COUNT 5.37 10/6/uL (4.7-6.1); WHITE BLOOD CELLS 7.2 10/3/uL (4.5-10.5)
[2017-05-01 06:32] LABS: MANUAL DIFF NO %
[2017-05-01 06:34] LABS: INTERNATIONAL NORMAL RATI 1.4 UNITS (-); PROTIME (NOT ORD) 16.8 SEC (12.0-14.5)
[2017-05-01 06:39] LABS: BUN (BLOOD UREA NITROGEN) 25 MG/DL (6-23); CALCIUM, SERUM 9.2 MG/DL (8.5-10.4); CHLORIDE, SERUM 100 MMOL/L (96-112); CO2 (CARBON DIOXIDE) 27 MMOL/L (24-34); CREATININE 1.12 MG/DL (0.70-1.30); GFR AFRICAN AMERICAN 86 ML/MIN (>=60); GFR NON AFRICAN AMERICAN 75 ML/MIN (>=60); GLUCOSE, SERUM 88 MG/DL (60-99); POTASSIUM, SERUM 4.2 MMOL/L (3.5-5.3); SODIUM, SERUM 137 MMOL/L (135-148)
[2017-05-01] MEDS ORDERED: DEMA20 PO (11:23)
[2017-05-01] MEDS ORDERED: KLOR-CON M2020 MEQ PO (11:25)
[2017-05-01] MEDS ORDERED: LIPITOR40 PO (11:36)
[2017-05-01] MEDS ORDERED: COREG6 PO (11:37)
[2017-05-01] MEDS ORDERED: COZ25 PO (11:38)
[2017-05-01] MEDS ORDERED: COUMADIN10 MG PO (11:38)
== END 2017-05-01 18:19 | disposition home or self-care (01) | DRG 286 ==
LOC: ER 12:29 → 5NO 18:57
PROVIDERS: Emergency Medicine; Hospitalist; Internal Medicine; Internal Medicine Cardiovascular Disease
PROC: 4A023N8 Measurement of Cardiac Sampling and Pressure, Bilateral, Percutaneous Approach (ICD-10-PCS; principal; 2017-04-26)
PROC: B2111ZZ Fluoroscopy of Multiple Coronary Arteries using Low Osmolar Contrast (ICD-10-PCS; 2017-04-26)
PROC: B2151ZZ Fluoroscopy of Left Heart using Low Osmolar Contrast (ICD-10-PCS; 2017-04-26)
DX: I35.0 Nonrheumatic aortic (valve) stenosis (principal); I50.43 Acute on chronic combined systolic (congestive) and diastolic (congestive) heart failure; E87.3 Alkalosis; I27.2 Other secondary pulmonary hypertension; Z68.45 Body mass index [BMI] 70 or greater, adult; E66.01 Morbid (severe) obesity due to excess calories; I11.0 Hypertensive heart disease with heart failure; I48.0 Paroxysmal atrial fibrillation; I45.10 Unspecified right bundle-branch block; M71.21 Synovial cyst of popliteal space [Baker], right knee; G47.33 Obstructive sleep apnea (adult) (pediatric); F17.210 Nicotine dependence, cigarettes, uncomplicated
CPT/HCPCS: 71010; 71275; 74174; 80048; 80061; 80076; 82803; 82962; 83036; 83735; 83880; 84484; 85025; 85610; 85730; 93005; 93460; 93880; 93970; 96374; 97110-GO; 97110-GP; 97116-GP; 97163-GP; 97166-GO; 97530-GO; 97535-GO; 99152; 99153; 99285; A9270-GY; C1751; C1769; C1894; C8929; J1170; J1940; J1956; J2250; J3010; Q9957; Q9967